=== PATIENT | male | born 1985 | race Caucasian/White ===

== ENCOUNTER 2018-04-29 09:31 | Inpatient (IN) | payer MEDICARE, OTHER ==
[2018-04-29 09:31] VITALS: BMI 39.1
[2018-04-29 09:51] VITALS: O2SAT 99
--- NOTE | 2018-04-29 10:27 | ED PDOC ---
Arrival/HPI - General Chief Complaint: Psychiatric Evaluation Time Seen by Provider: 04/29/18 10:22 Historian: Patient - History of Present Illness Narrative History of Present Illness (Text): 04/29/18 10:22 33 year old male, whose past medical history includes anxiety, depression, schizophrenia, bipolar disorder, history of diabetes but poorly controlled and has been seeing a specialist including onion tier and swimmer, presents to the emergency department complaining of feeling unhappy and depressed. Patient states he has been feeling very unhappy and depressed because he has chronic vision problems due to the diabetes which has been going on for the past 1 year, follow up by the opthalmologist and told him that he needs to have better glucose control. Patient is thinking about committing suicide by jumping in front of a car in the street. Patient denies any chest pain, palpitations, abdominal pain, nausea, vomiting, diarrhea, homicidal ideation, worsening of the vision, auditory/visual hallucinations, or any other complaints. Symptom Onset: Gradual Symptom Course: Unchanged Activities at Onset: Light Context: Home Past Medical History - Provider Review Nursing Documentation Reviewed: Yes - Infectious Disease Hx of Infectious Diseases: None - Cardiac Hx Cardiac Disorders: No - Pulmonary Hx Respiratory Disorders: No - Endocrine/Metabolic Hx Diabetes Mellitus Type 2: Yes - Hematological/Oncological Hx Blood Disorders: No - Integumentary Hx Dermatological Disorder: No - Musculoskeletal/Rheumatological Hx Falls: No - Psychiatric Hx Bipolar Disorder: Yes Hx Schizophrenia: Yes Hx Substance Use: No - Surgical History Hx Musculoskeletal Surgery: Yes (left knee) - Anesthesia Hx Anesthesia: No Hx Anesthesia Reactions: No Hx Malignant Hyperthermia: No - Suicidal Assessment Feels Threatened In Home Enviroment: No Family/Social History - Physician Review Nursing Documentation Reviewed: Yes Family/Social History: No Known Family HX Smoking Status: Never Smoked Hx Alcohol Use: No Hx Substance Use: No Hx Substance Use Treatment: No Allergies/Home Meds Allergies/Adverse Reactions: Allergies No Known Allergies Allergy (Verified 10/23/15 02:31) Home Medications: Home Meds Medication Instructions Recorded Confirmed Divalproex [Depakote ER] 500 mg PO BID 02/03/15 04/29/18 Omeprazole 40 mg PO DAILY 10/23/15 04/29/18 buPROPion XL [Wellbutrin XL] 300 mg PO BID 10/23/15 04/29/18 Fenofibrate [Tricor] 0 mg PO DAILY 04/29/18 04/29/18 MetFORMIN [glucOPHAGE] 1,000 mg PO BID 04/29/18 04/29/18 Rosuvastatin Calcium [Crestor] 10 mg PO DAILY 04/29/18 04/29/18 Review of Systems - Physician Review All systems were reviewed & negative as marked: Yes - Review of Systems Constitutional: absent: Fatigue, Fevers Eyes: absent: Photophobia, Eye Pain ENT: absent: Hearing Changes Respiratory: absent: SOB, Cough Cardiovascular: absent: Chest Pain Gastrointestinal: absent: Abdominal Pain, Diarrhea, Nausea, Vomiting Musculoskeletal: absent: Arthralgias, Back Pain Skin: absent: Rash, Pruritis Neurological: absent: Headache, Dizziness Hemo/Lymphatic: absent: Adenopathy, Easy Bleeding Psychiatric: Anxiety, Depression, Suicidal Ideation Physical Exam Vital Signs Reviewed: Yes Vital Signs Temp Pulse Resp BP Pulse Ox 04/29/18 13:35 98.6 F 88 18 129/85 99 04/29/18 09:50 98.7 F 78 16 137/84 99 Temperature: Afebrile Blood Pressure: Normal Pulse: Regular Respiratory Rate: Normal Appearance: Positive for: Well-Appearing, Non-Toxic, Comfortable Pain Distress: None Mental Status: Positive for: Alert and Oriented X 3 - Systems Exam Head: Present: Atraumatic, Normocephalic Pupils: Present: PERRL, Other (bilateral vision 20/70 with corrections. Left eye vision with correction 20/70. Right eye vision with correction 20/70.) Extroacular Muscles: Present: EOMI Conjunctiva: Present: Normal Ears: Present: NORMAL TM, Normal Canal. No: Erythema Mouth: Present: Moist Mucous Membranes Pharnyx: No: ERYTHEMA, EXUDATE, TONSILS ENLARGED Nose (External): Present: Atraumatic. No: Abrasion, Contusion, Laceration Nose (Internal): Present: Normal Inspection, No Active Bleeding. No: Rhinorrhea , Septal Hematoma, Epistaxis Neck: Present: Normal Range of Motion, Trachea Midline. No: MIDLINE TENDERNESS , Paraspinal Tenderness, Lymphadenopathy Respiratory/Chest: Present: Clear to Auscultation, Good Air Exchange. No: Respiratory Distress, Accessory Muscle Use Cardiovascular: Present: Regular Rate and Rhythm, Normal S1, S2. No: Murmurs Abdomen: No: Tenderness, Distention, Peritoneal Signs Back: Present: Normal Inspection Upper Extremity: Present: Normal Inspection. No: Cyanosis, Edema Lower Extremity: Present: Normal Inspection. No: Edema Neurological: Present: GCS=15, CN II-XII Intact, Speech Normal, Motor Func Grossly Intact, Gait Normal, Memory Normal Skin: Present: Warm, Dry, Normal Color. No: Rashes Psychiatric: Present: Alert, Oriented x 3, Normal Insight, Normal Concentration Medical Decision Making ED Course and Treatment: 04/29/18 10:41 -Labs/ua/uds/alcohol -ekg -cxr -PES notified and would come to evaluate the patient -One on One -Observe and reassess 04/29/18 11:10 -Chest xray: No active disease. -Labs show no acute findings -UA show no UTI -Acetaminophen/salicylate/alcohol levels are within normal limit -UDS show no acute findings. -Pt. is medically clear and stable at this time for the psychiatric evaluation. 04/29/18 12:08 -Pt. evaluated by the SUSANA Woodson, spoke to the psychiatrist DR. Alanis mohan and request to admit this patient to psy floor. Dr. Flores will put in the admission order. - Lab Interpretations Lab Results: 04/29/18 09:40 04/29/18 09:40 Lab Results 04/29/18 09:40: Alcohol, Quantitative < 10 04/29/18 09:40: WBC 8.8 D, RBC 4.85, Hgb 14.1, Hct 40.3 L, MCV 83.1, MCH 29.1, MCHC 35.0, RDW 12.4, Plt Count 275, MPV 9.4, Gran % 69.2 H, Lymph % (Auto) 23.3 , Hall % (Auto) 5.9, Eos % (Auto) 1.5, Baso % (Auto) 0.1, Gran # 6.12, Lymph # ( Auto) 2.1, Hall # (Auto) 0.5, Eos # (Auto) 0.1, Baso # (Auto) 0.01 04/29/18 09:40: Salicylates < 1 L, Acetaminophen < 10.0 L 04/29/18 09:40: Urine Opiates Screen Negative, Urine Methadone Screen Negative, Ur Barbiturates Screen Negative, Ur Phencyclidine Scrn Negative, Ur Amphetamines Screen Negative, U Benzodiazepines Scrn Negative, U Oth Cocaine Metabols Negative, U Cannabinoids Screen Negative 04/29/18 09:40: Sodium 140, Potassium 3.9, Chloride 101, Carbon Dioxide 24, Anion Gap 18, BUN 14, Creatinine 0.7 L, Est GFR ( Amer) > 60, Est GFR ( Non-Af Amer) > 60, Random Glucose 85, Calcium 10.1, Magnesium 2.0, Total Bilirubin 0.7, AST 42, ALT 38, Alkaline Phosphatase 37 L, Total Protein 8.7 H, Albumin 4.9 H, Globulin 3.8, Albumin/Globulin Ratio 1.3 04/29/18 09:40: Urine Color Yellow, Urine Appearance Clear, Urine pH 6.5, Ur Specific [place] 1.025, Urine Protein 100 H, Urine Glucose (UA) Negative, Urine Ketones Negative, Urine Blood Negative, Urine Nitrate Negative, Urine Bilirubin Negative, Urine Urobilinogen 0.2, Ur Leukocyte Esterase Negative, Urine RBC 0 - 2, Urine WBC 0 - 2, Ur Epithelial Cells 0 - 2, Urine Bacteria Mod, Urine Other Usperm I have reviewed the lab results: Yes - RAD Interpretation Radiology Orders: 04/29/18 10:27 CHEST PORTABLE [RAD] Stat HISTORY: medical clearance COMPARISON: 10/22/2015 FINDINGS: LUNGS: No active pulmonary disease. PLEURA: No significant pleural effusion identified, no pneumothorax apparent. CARDIOVASCULAR: Normal. OSSEOUS STRUCTURES: No significant abnormalities. VISUALIZED UPPER ABDOMEN: Normal. OTHER FINDINGS: None. IMPRESSION: No active disease. Bedspread Cutter Hand: Radiologist - EKG Interpretation EKG Interpretation (Text): 04/29/18 18:54 NSR @ 76 BPM, no ST elevation or depression, no T wave inversion. Interpreted by ED Physician: Yes Type: 12 lead EKG - Medication Orders Current Medication Orders: Atorvastatin Calcium (Lipitor) 20 mg PO DIN LYNDSEY Bupropion HCl (Wellbutrin Xl) 300 mg PO DAILY LYNDSEY Chlorpromazine (Thorazine) 200 mg PO HS LYNDSEY PRN Reason: Protocol Divalproex Sodium (Depakote Er(Once Daily)) 1,000 mg PO HS LYNDSEY PRN Reason: Protocol Fenofibrate (Tricor) 145 mg PO DAILY LYNDSEY Glipizide (Glucotrol) 10 mg PO 0730,1630 LYNDSEY Hydroxyzine HCl (Atarax) 100 mg PO HS PRN PRN Reason: Anxiety Insulin Human Regular (Humulin R Med) 0 units SC ACHS LYNDSEY PRN Reason: Protocol Last Admin: 04/29/18 17:38 Dose: Not Given Non-Admin Reason: Blood Sugar Parameter MAR Blood Glucose Document 04/29/18 17:38 [facility] (Rec: 04/29/18 17:38 [facility] [id number]) Blood Glucose Finger Stick Blood Glucose (70-120) 84 Lorazepam (Ativan) 2 mg PO Q6 PRN; Protocol PRN Reason: Agitation Lorazepam (Ativan) 2 mg IM Q6H PRN; Protocol PRN Reason: Agitation Metformin HCl (Glucophage) 1,000 mg PO BID LYNDSEY Ziprasidone (Geodon Cap) 20 mg PO Q6H PRN; Protocol PRN Reason: Agitation Ziprasidone (Geodon Inj) 20 mg IM Q6 PRN; Protocol PRN Reason: Agitation Discontinued Medications Hydroxyzine HCl (Atarax) 100 mg PO HS PRN PRN Reason: Anxiety - PA / CARDIAC CATH TECHNOLOGIST / Resident Statement MD/DO has reviewed & agrees with the documentation as recorded. - Scribe Statement The provider has reviewed the documentation as recorded by the Omi Finley Provider Scribe Attestation: All medical record entries made by the Omi were at my direction and personally dictated by me. I have reviewed the chart and agree that the record accurately reflects my personal performance of the history, physical exam, medical decision making, and the department course for this patient. I have also personally directed, reviewed, and agree with the discharge instructions and disposition. Disposition/Present on Arrival - Present on Arrival Any Indicators Present on Arrival: No History of DVT/PE: No History of Uncontrolled Diabetes: No Urinary Catheter: No History of Decub. Ulcer: No History Surgical Site Infection Following: None - Disposition Have Diagnosis and Disposition been Completed?: Yes Diagnosis: Depression, Bipolar disorder, Psychosis Disposition: HOSPITALIZED Disposition Time: 12:09 Patient Plan: Admission Patient Problems: Current Active Problems Problem Status Onset Depression Acute Bipolar disorder Acute Psychosis Acute Condition: GOOD
[2018-04-29 10:44] LABS: BASO # 0.01 K/mm3 (0.0-2.0); BASO % 0.1 % (0.0-3.0); EOS # 0.1 (0.0-0.7); EOS % 1.5 % (1.5-5.0); GRAN # 6.12 (1.4-6.5); GRAN % 69.2 % (50.0-68.0); HEMOGLOBIN 14.1 g/dL (14.0-18.0); LYMPH # 2.1 (1.2-3.4); LYMPH % 23.3 % (22.0-35.0); MEAN CELL VOLUME 83.1 fl (80.0-105.0); MEAN CORPUSCULAR HEMOGLOBIN 29.1 pg (25.0-35.0); MEAN PLATELET VOLUME 9.4 fl (7.0-11.0); MONO # 0.5 (0.1-0.6); MONO % 5.9 % (1.0-6.0); RBC 4.85 10^6/uL (3.5-6.1); RED CELL DISTRIBUTION WIDTH 12.4 % (11.5-14.5); WHITE BLOOD COUNT 8.8 10^3/ul (4.5-11.0)
--- NOTE | 2018-04-29 10:47 | RAD ---
Date of service: 04/29/2018 HISTORY: medical clearance COMPARISON: 10/22/2015 FINDINGS: LUNGS: No active pulmonary disease. PLEURA: No significant pleural effusion identified, no pneumothorax apparent. CARDIOVASCULAR: Normal. OSSEOUS STRUCTURES: No significant abnormalities. VISUALIZED UPPER ABDOMEN: Normal. OTHER FINDINGS: None. IMPRESSION: No active disease.
[2018-04-29 10:58] LABS: PH,URINE 6.5 (4.7-8.0); URINE BILIRUBIN NEGATIVE (NEGATIVE); URINE BLOOD NEGATIVE (NEGATIVE); URINE GLUCOSE (UA) NEGATIVE (NEGATIVE); URINE LEUKOCYTE ESTERASE NEGATIVE Leu/uL (NEGATIVE); URINE PROTEIN 100 mg/dL (<30 mg/dL); URINE UROBILINOGEN 0.2 E.U./dL (<1 E.U./dL)
[2018-04-29 10:59] LABS: ALB/GLOB RATIO 1.3 (1.1-1.8); ALBUMIN 4.9 g/dL (3.0-4.8); ALT/SGPT 38 U/L (7-56); AST/SGOT 42 U/L (17-59); BLOOD UREA NITROGEN 14 mg/dL (7-21); CALCIUM 10.1 mg/dL (8.4-10.5); GFR NON-AFRICAN AMERICAN > 60
[2018-04-29 11:00] LABS: ACETAMINOPHEN < 10.0 ug/ml (10.0-20.0); SALICYLATE < 1 mg/dL (2.0-20.0); URINE COLOR YELLOW (YELLOW)
[2018-04-29 11:01] LABS: URINE APPEARANCE CLEAR (CLEAR)
[2018-04-29 11:11] LABS: BARBITURATES, UR NEGATIVE (NEGATIVE); BENZODIAZEPINES, UR NEGATIVE (NEGATIVE); OPIATES, UR NEGATIVE (NEGATIVE); PHENCYCLIDINE, UR NEGATIVE (NEGATIVE)
[2018-04-29 11:22] LABS: URINE BACTERIA MOD (NEG); URINE EPITHELIAL CELLS 0 - 2 /hpf (0-5); URINE RBC 0 - 2 /hpf (0-2); URINE WBC 0 - 2 /hpf (0-6)
--- NOTE | 2018-04-29 15:54 | CARD ---
APPROVED REPORT Date of service: 04/29/2018 EKG Measurement Heart [id number] <Conclusion> Poor data quality, interpretation may be adversely affected Normal sinus rhythm Normal ECG
[2018-04-29] MEDS: Insulin Reg-MEDIUM-Coverage SC SCH ×2 (17:38→21:37)
--- NOTE | 2018-04-29 18:13 | PCM.BM ---
<NoraMitchell oseguera - Last Filed: 04/29/18 18:10> Treatment Plan Problems - Problems identified on initial assessmt HOPELESSNESS/HELPLESSNESS Date Initiated: 04/29/18 Time Initiated: 18:11 Assessment reference: HP, NA Status: Active INEFFECTIVE COPING Date Initiated: 04/29/18 Time Initiated: 18:11 Assessment reference: HP, NA Status: Active SOCIAL ISOLATION Date Initiated: 04/29/18 Time Initiated: 18:12 Assessment reference: HP, NA Status: Active Treatment assets and liabiliti Patient Assests: cooperative, self-reliant, physically healthy, cognitively intact Patient Liabilities: live alone, poor support system, other - Milieu Protocol Maintain good personal hygiene: daily Encourage regular showers, daily Remind patient to perform daily oral care, daily Assist patient to perform ADL's Maintain personal safety: daily Educate patient to report safety concerns to staff, daily Monitor environment for contraband/sharps Medication safety: Monitor for expected outcome, potential side effects: daily, Assess barriers to learning: daily, Assess readiness for medication education: daily Discharge/Continuing Care - Education Needs Education Needs: Patient Medication, Patient Diagnosis/Disease Process, Patient Coping Skills, Patient Anger Management skills, Patient Placement options, Patient Community resources, Patient Health Practices/Safety, Patient Personal Hygiene/Grooming, Patient Aftercare Safety Plan - Discharge Discharge Criteria: Tolerates medication w/o severe side effects, Free of Suicidal thoughts, Free of Homicidal thoughts, Free of paranoid thoughts, Free of agitation, Normal sleep pattern, Ability to care for self Discharge to:: Home <Neelam Vu - Last Filed: 04/30/18 14:05> Family Contact Family involvement: Family/SO is involved Family contact: Patient agrees to contact Family contact name: Liborio Sandoval, , Family contacted how many times per week?: 2 - Outside Agency [facility] Care involvment: Information-sharing Agency contact name: [facility] Agency contact number: [phone] <Alanis Pascual - Last Filed: 04/30/18 16:06> - Diagnosis (1) MDD (major depressive disorder), single episode, severe with psychosis Status: Acute Interventions: 04/30/18 16:04 Psychoeducation Psychopharmacology/adjustment of medications as needed/ monitoring possible side effects Evaluate pt on daily basis Compliance with medications and follow up appointments Suicide and homicide risk assessment and prevention Relapse prevention Reduction of symptoms Improve functional status Family involvement As outpatient: cognitive behavioral therapy antipsychotic meds
[2018-04-29] MEDS: Divalproex 500 mg ER (ONCE DAILY formulation) PO SCH (21:26)
[2018-04-30 07:51] LABS: GLUCOSE,FASTING 102 mg/dL (65-110); HDL CHOLESTEROL 40 mg/dL (29-60)
[2018-04-30] MEDS ORDERED: buPROPion 300 mg/24 Hours XL Tab PO SCH (08:00)
[2018-04-30 08:02] LABS: LDL CHOLESTEROL 38 mg/dL (0-129)
[2018-04-30 08:07] LABS: FREE T4 1.46 ng/dL (0.78-2.19)
[2018-04-30] MEDS: Insulin Reg-MEDIUM-Coverage SC SCH ×4 (09:08→23:38)
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
--- NOTE | 2018-04-30 14:00 | CON ---
DATE: 04/30/2018ENDOCRINOLOGY CONSULT LOCATION: In room 515. HISTORY OF PRESENT ILLNESS: This is a 33-year-old male with known history of type 2 diabetes and hypertension, presenting here with suicidal ideations and supervening generalized anxiety and depression on the background of underlying schizophrenia and bipolar disorder and is now being referred for diabetic evaluation and management. PAST MEDICAL HISTORY: As mentioned above, history of type 2 diabetes, currently on metformin given as 1 g b.i.d. He was told by his mortgage or loan underwriter that his glucose levels did have been out of control, but the patient is unable to give the exact level of his A1c as noted. History of hypertension and dyslipidemia, history of diabetic retinopathy and has chronic visual problems and is seeing an substance abuse specialist very closely for outpatient followup. History of chronic schizoaffective disorder with schizophrenia and has been on psychotropic medications as noted. FAMILY HISTORY: Positive for hypertension and diabetes. SOCIAL HISTORY: The patient has supportive family. No known substance use. REVIEW OF SYSTEMS: As mentioned above, admits to generalized body weakness with episodic bouts of dizziness and lightheadedness, worse on the day of admission. No chest pains or palpitations or PNDs. His oral intake has been variable with nausea, dyspepsia and occasional vague upper abdominal pains. Also admits to occasional nocturia and lower extremity paresthesias. PHYSICAL EXAMINATION: GENERAL: This is an overweight male, in no apparent distress. VITAL SIGNS: Blood pressure of 140/80; pulse of 70 beats per minute, regular; temperature 98; respirations 20; height is 5 feet 8 inches, weight is 220 pounds. HEENT: Head normocephalic. Eyes anicteric with pink conjunctivae. Funduscopy not possible at this time. Ears, nose and throat otherwise normal. NECK: Supple. Thyroid gland normal sized. No carotid bruits or cervical adenopathy. CARDIOPULMONARY: Some adynamic precordium. S1, S2 is rapid and regular. LUNGS: Clear to auscultation. ABDOMEN: Flat, soft with positive bowel sounds. EXTREMITIES: No peripheral edema. Pulses are +2 bilaterally. LABORATORY DATA: His chemistry showed a BUN of 14, sodium 140, potassium 3.9, chloride 101, CO2 of 24, glucose 85 and creatinine 0.7. His glucose levels have been near optimal and have ranged from 92-111 and 119 mg/dL. His TSH is 2.13. ASSESSMENT: This is a 33-year-old male with known history of type 2 diabetes and hypertension, presenting here with suicidal ideations on the background of chronic schizoaffective disorder and schizophrenia and is now being referred for a diabetic evaluation and management. PLAN OF MANAGEMENT: We will continue the dual oral hypoglycemic therapy as already given with metformin at 1 g b.i.d. and Glucotrol 10 mg b.i.d. before meals as ordered. We will continue the low-dose correction scale using Humalog insulin as given and we will titrate incrementally as indicated to optimize metabolic control. We will obtain serial chemistries and supplement accordingly as needed. A hemoglobin A1c will be done to confirm his prior glycemic control and we will consider the addition of a third oral hypoglycemic therapy only if glycemic fluctuations persist. We will follow. Marleny Paul MD
--- NOTE | 2018-04-30 16:59 | PCM.PSYCH ---
Initial Psychiatric Evaluation - Initial Psychiatric Evaluation Type of Admission: Voluntary Legal Status: Capacity (patient has capacity to sign consent for treatment) Chief Complaint (in patient's own words): "3 days ago I was hearing voices, I tried to walk into the traffic, I didn't tell anyone, yesterday and felt the same way that's why called 911" Patient's Reaction to Hospitalization: patient was admitted to the psychiatric inpatient unit for evaluation and stabilization of depressive symptoms, possible suicidal ideation. History of Present Illness and Precipitating Events: shortly patient is 33 year old male with reported history of sschizoaffective versus schizophrenia, multiple previous suicidal attempts as well as multiple psychiatric admissions, patient has multiple medical issues including diabetes, patient called 911 saying that he feels suicidal and brought himself to the hospital, 3 days ago on 04/28/2018 patient was trying to kill himself by walking into the traffic, did not tell anyone, did not come to the hospital for evaluation, patient reported being compliant with the medications, main stress is related to the fact that his mother is dying of brain cancer and she is on hospice patient also has blurry vision due to diabetes, patient obviously needs further evaluation and stabilization, indications adjustment. patient attends [facility] but fail outpatient program and right now needs higher level of care. Patient was seen and examined today at the morning time at the treatment team meeting, patient presented with acceptable personal hygiene, fare ADLs, flat affect, obviously depressed, seems to be relatively good historian, but patient had difficulty to concentrate and stay focused. patient reported that 3 days ago patient tried to jump in front of the car secondary to "blurry vision, whenever I feel I am loosing my vision I feel hopeless and suicidal", pt said he wanted to jump in front of the car because voices in his head were telling him to do so, pt also reported he had intent of killing himself. pt said that after approximately 30 minutes patient decided to come back home, patient did not ask for help back then. Patient reported yesterday she again started to have blurry vision and decided to call 911 ask for help for his suicidal ideation. Patient reported that he feels depressed, hopeless, helpless, worthless, guilty , patient reported that he feels "overwhelmed with my medical issues". Patient reported that for past 2 weeks he was thinking about cutting himself or overdosing on medication or walk into the traffic. Patient reported that he they did not tried to cut himself or overdose on medication for the past 2 weeks. patient denied that he has Street off many, no symptoms were identified. Patient denied feeling anxious, denied history of abuse, denied history of panic attacks. In regards of psychotic symptoms patient reported that he hears voices, denied feeling paranoid. Patient denied using drugs, denied using alcohol, denied smoking. past psychiatric history: PT reports prior suicide attempt by walking into traffic in 2006 by walking into traffic, pt reported that he sustained severe injury on his left leg (old scar on his oneill), and severe brain trauma "I have memory loss". Pt reports he was hospitalized at [facility] on the medical unit for 1 1/2 years. Pt reports he was in [place] [facility] for 6 months in 2008. Pt reports he was dx with Bipolar and Schizophrenia. Pt reports he was also admitted to [facility] multiple times. PT reports prior hospitalization due to brain injury at [place]. PT reports 2 suicide attempts in 2006 and 3 days ago. Family h/o: pt denies any familial hx of suicide attempts. patient contracted for safety patient currently under care of nurse practitioner Ivonne at [facility]. all medications were confirmed by [facility] please see medication list filed into the chart. Reviewing med list patient was on couple of medication which "gave patient blurted patient including Wellbutrin as well as Thorazine. Patient agreed to be weaned off from the Wellbutrin as well as decreased dose of Thorazine. Pt was on Invega Sustenna last dose was given April 02, 234 mg monthly. called in to [facility] pharmacy already, it is not formulary in the unit. patient was seen by medical doctor, input appreciated. endocrinology consult would be considered. SW called for collaterals from pt's sister, as per sister pt was not losing vision, was seen by chamfering machine operator and PMD. see notes for more detailed info. 04/29/18 09:40 04/29/18 09:40 Lab Results 04/30/18 12:00: POC Glucose (mg/dL) 119 H 04/30/18 07:25: POC Glucose (mg/dL) 92 04/30/18 07:15: RPR Nonreactive 04/30/18 07:15: Free T4 1.46, TSH 3rd Generation 2.13 04/30/18 07:15: Fasting Glucose 102, Triglycerides 125, Cholesterol 109 L, LDL Cholesterol Direct 38, HDL Cholesterol 40 04/29/18 20:54: POC Glucose (mg/dL) 111 H 04/29/18 16:30: POC Glucose (mg/dL) 84 04/29/18 09:40: Alcohol, Quantitative < 10 04/29/18 09:40: WBC 8.8 D, RBC 4.85, Hgb 14.1, Hct 40.3 L, MCV 83.1, MCH 29.1, MCHC 35.0, RDW 12.4, Plt Count 275, MPV 9.4, Gran % 69.2 H, Lymph % (Auto) 23.3 , [place] % (Auto) 5.9, Eos % (Auto) 1.5, Baso % (Auto) 0.1, Gran # 6.12, Lymph # ( Auto) 2.1, [place] # (Auto) 0.5, Eos # (Auto) 0.1, Baso # (Auto) 0.01 04/29/18 09:40: Salicylates < 1 L, Acetaminophen < 10.0 L 04/29/18 09:40: Urine Opiates Screen Negative, Urine Methadone Screen Negative, Ur Barbiturates Screen Negative, Ur Phencyclidine Scrn Negative, Ur Amphetamines Screen Negative, U Benzodiazepines Scrn Negative, U Oth Cocaine Metabols Negative, U Cannabinoids Screen Negative 04/29/18 09:40: Sodium 140, Potassium 3.9, Chloride 101, Carbon Dioxide 24, Anion Gap 18, BUN 14, Creatinine 0.7 L, Est GFR ( Amer) > 60, Est GFR ( Non-Af Amer) > 60, Random Glucose 85, Calcium 10.1, Magnesium 2.0, Total Bilirubin 0.7, AST 42, ALT 38, Alkaline Phosphatase 37 L, Total Protein 8.7 H, Albumin 4.9 H, Globulin 3.8, Albumin/Globulin Ratio 1.3 04/29/18 09:40: Urine Color Yellow, Urine Appearance Clear, Urine pH 6.5, Ur Specific [place] 1.025, Urine Protein 100 H, Urine Glucose (UA) Negative, Urine Ketones Negative, Urine Blood Negative, Urine Nitrate Negative, Urine Bilirubin Negative, Urine Urobilinogen 0.2, Ur Leukocyte Esterase Negative, Urine RBC 0 - 2, Urine WBC 0 - 2, Ur Epithelial Cells 0 - 2, Urine Bacteria Mod, Urine Other Usperm Vital Signs Temp Pulse Resp BP Pulse Ox 04/30/18 07:06 97.5 F L 94 H 20 108/76 04/29/18 16:30 88 133/88 04/29/18 13:35 98.6 F 88 18 129/85 99 04/29/18 09:50 98.7 F 78 16 137/84 99 Current Medications: Active Medications Generic Name Dose Route Start Last Admin Trade Name Freq PRN Reason Stop Dose Admin Atorvastatin Calcium 20 mg 04/30/18 17:00 Lipitor PO DIN LYNDSEY Bupropion HCl 150 mg 04/30/18 16:07 Wellbutrin Xl PO DAILY LYNDSEY Chlorpromazine 100 mg 04/30/18 16:09 Thorazine PO HS LYNDSEY Protocol Divalproex Sodium 1,000 mg 04/29/18 22:00 04/29/18 21:26 Depakote Er(Once Daily) PO 1,000 mg HS LYNDSEY Administration Protocol Escitalopram Oxalate 15 mg 04/30/18 16:15 Lexapro PO DAILY LYNDSEY Fenofibrate 145 mg 04/30/18 08:00 04/30/18 09:07 Tricor PO 145 mg DAILY LYNDSEY Administration Glipizide 10 mg 04/30/18 07:30 04/30/18 09:07 Glucotrol PO 10 mg 0730,1630 LYNDSEY Administration Hydroxyzine HCl 100 mg 04/29/18 22:00 Atarax PO HS PRN Anxiety Insulin Human Regular 0 units 04/29/18 16:30 04/30/18 09:08 Humulin R Med SC Not Given ACHS LYNDSEY Protocol Lorazepam 2 mg 04/29/18 17:33 Ativan PO Q6 PRN Agitation Protocol Lorazepam 2 mg 04/29/18 17:36 Ativan IM Q6H PRN Agitation Protocol Metformin HCl 1,000 mg 04/30/18 08:00 04/30/18 09:07 Glucophage PO 1,000 mg BID LYNDSEY Administration Ziprasidone 20 mg 04/29/18 17:34 Geodon Cap PO Q6H PRN Agitation Protocol Ziprasidone 20 mg 04/29/18 17:36 Geodon Inj IM Q6 PRN Agitation Protocol Past Psychiatric History - Past Psychiatric History Previous Treatment History: Inpatient Prior Professional Help: see HPI Prior Psychiatric Treatment: see HPI At what hospital: see HPI Duration: see HPI Nature of Treatment: see HPI Explanation of prior treatment: see HPI History of Abuse: see HPI History of ETOH/Drug Use: see HPI History of Family Illness: see HPI Pertinent Medical Hx (Current Medical&Sleep Prob, Allergies): Allergies Allergy/AdvReac Type Severity Reaction Status Date / Time No Known Allergies Allergy Verified 10/23/15 02:31 Divalproex [Depakote ER] 500 mg PO BID 02/03/15 Omeprazole 40 mg PO DAILY 10/23/15 buPROPion XL [Wellbutrin XL] 300 mg PO BID 10/23/15 Fenofibrate [Tricor] 0 mg PO DAILY 04/29/18 MetFORMIN [glucOPHAGE] 1,000 mg PO BID 04/29/18 Rosuvastatin Calcium [Crestor] 10 mg PO DAILY 04/29/18 Review of Systems - Review of Systems Systems not reviewed;Unavailable: Acuity of Condition - EENT Eyes: As Per HPI Ears: As Per HPI Nose/Mouth/Throat: As Per HPI - Cardiovascular Cardiovascular: As Per HPI - Respiratory Respiratory: As Per HPI - Gastrointestinal Gastrointestinal: As Per HPI - Genitourinary Genitourinary: As Per HPI - Reproductive: Male Reproductive:Male: As Per HPI - Musculoskeletal Musculoskeletal: As Par HPI - Integumentary Integumentary: As Per HPI - Neurological Neurological: As Per HPI - Psychiatric Psychiatric: As Per HPI - Endocrine Endocrine: As Per HPI - Hematologic/Lymphatic Hematologic: As Per HPI Mental Status Examination - Personal Presentation Personal Presentation: Looks stated age - Affect Affect: Flat - Motor Activity Motor Activity: Psychomotor Retardation - Reliability in Providing Information Reliability in Providing Information: Fair - Speech Speech: Organized - Mood Mood: Depressed - Formal Thought Process Formal Thought Process: Hallucinations - Hallucinations/Delusions Hallucinations: Auditory - Obsessions/Compulsions Obsessions: None Compulsions: None - Cognitive Functions Orientation: Person, Place Sensorium: Alert Abstract Thinking: [place] Estimate of Intelligence: Average Judgement: Intact, as evidence by: Insight regarding need for hospitalization - Risk Risk: Suicidal, Self-mutilation, Diminished functioning - Strength & Assets Inventory Strength & Assets Inventory: Family support, Cooperative - Limitations Limitations: Other (mental illness, a lot of stressors, multiple medical issues) DSM 5 DX - DSM 5 DSM 5 Diagnosis: schizoaffective disorder as per history - Recommended/Plan of Treatment Treatment Recommendations and Plan of Treatment: Milieu/structure/supportive therapy Medical consult appreciated, see medical team note for more detailed info endocrinology consultation will be considered Medications were confirmed by patient pharmacy Wellbutrin was decreased to 150 mg daily with a plan to wean it off, patient was on 300 mg daily ( patient complain of blurry vision) Thorazine will be decreased from 200 mg to 100 mg at the nighttime with a plan to wean it off, patient complain of blurry vision Lexapro will be increased to 15 mg a day for depression with a plan to increase that further Invega Sustenna will be continued to 34 mg monthly, this public relations writer called in to [facility] pharmacy, patient is due for injection on Thursday, May 03. We'll continue Depakote 1000 mg at the nighttime We'll check Depakote level 05/01/2018 Vistaril was decreased from 100 mg at the nighttime to 50 mgas needed for anxiety SW consultation for discharge plan and social issues Family involvement, ollateral information appreciated from patient's sister, please see manager social media notes for more detailed information Follow up on labs Will monitor closely Pt was educated about risk/benefits and alternatives of medications, coping strategies (safety plan, suicide prevention), relapse prevention, importance of follow up with psychiatrist and therapist, stay away from drugs/alcohol/smoking Projected ELOS: 10 days Prognosis: fair Discharge Plan and Discharge Criteria: Pt will be not depressed or manic, will be more hopeful, will be not psychotic or anxious, will be not having thoughts of harming self or others, will be tolerating medications well, will not have major side effects, will be able to function, will not pose threat to self or others. - Smoking Cessation Smoking Cessation Initiated: No Reason for not providing: patient denied smoking
[2018-04-30] MEDS: Divalproex 500 mg ER (ONCE DAILY formulation) PO SCH (21:31)
[2018-05-01 09:06] LABS: ALB/GLOB RATIO 1.4 (1.1-1.8); ALBUMIN 4.3 g/dL (3.0-4.8); ALT/SGPT 27 U/L (7-56); AST/SGOT 35 U/L (17-59); BLOOD UREA NITROGEN 13 mg/dL (7-21); CALCIUM 9.5 mg/dL (8.4-10.5); GFR NON-AFRICAN AMERICAN > 60
[2018-05-01] MEDS: Insulin Reg-MEDIUM-Coverage SC SCH ×3 (09:23→16:12)
[2018-05-01] MEDS: buPROPion 150 mg/24 Hours XL Tab PO SCH (09:29)
--- NOTE | 2018-05-01 09:43 | PCM.PYCHPN ---
Psychiatric Progress Note - Psychiatric Progress Note Patient seen today, length of contact: 30 min Problems Identified/Issues Discussed: I reviewed assessment and recent notes. Patient is alert and oriented x3. He presents as calm and superficially cooperative. Patient reports that he is feeling "okay" and denies any major new concerns. He is still depressed however denies wishes or SI. He also denies any perceptual disturbance (though reported having hallucinations earlier in the admission). Patient denies any new discomfort or pain. He is tolerating his medications and reports sleeping well. Patient has been quiet and generally keeps to himself. There were no behavioral issues overnight. Diagnostic Results: Schizoaffective disorder by history Medication Change: Yes Medical Record Reviewed: Yes Mental Status Examination - Cognitive Function Orientation: Person, Place Attention: WNL Concentration: WNL Association: Loose Fund of Knowledge: Poor - Mood Mood: Depressed - Affect Affect: Constricted, Flat - Speech Speech: Appropriate - Formal Thought Process Formal Thought Process: Hallucinations (denied currently) - Suicidal Ideation Suicidal Ideation: No - Homicidal Ideation Homicidal Ideation: No Goal/Treatment Plan - Goal/Treatment Plan Progress Toward Problem(s) and Goals/Treatment Plan: * group, milieu and supportive tx --Thorazine decreased to 50 mg po HS on 05/01/18. --Plan to titrate Lexapro further --Plan to taper Wellbutrin further. --Continue Depakote 1000 mg at the nighttime 05/01/18 07:30 Valproic Acid 59 Vitals reviewed and noted below: 04/30/18 04/30/18 07:06 16:00 Temperature 97.5 F L Pulse Rate 94 H 123 H Respiratory 20 Rate Blood Pressure 108/76 103/66 * New weekend lab results noted below: Laboratory Results - last 24 hr 04/30/18 04/30/18 04/30/18 07:15 12:00 16:08 Sodium Potassium Chloride Carbon Dioxide Anion Gap BUN Creatinine Est GFR ( Amer) Est GFR (Non-Af Amer) POC Glucose (mg/dL) 119 H 83 Random Glucose Calcium Total Bilirubin AST ALT Alkaline Phosphatase Total Protein Albumin Globulin Albumin/Globulin Ratio Valproic Acid RPR Nonreactive 04/30/18 05/01/18 05/01/18 21:43 07:21 07:30 Sodium Potassium Chloride Carbon Dioxide Anion Gap BUN Creatinine Est GFR ( Amer) Est GFR (Non-Af Amer) POC Glucose (mg/dL) 91 89 Random Glucose Calcium Total Bilirubin AST ALT Alkaline Phosphatase Total Protein Albumin Globulin Albumin/Globulin Ratio Valproic Acid 59 RPR 05/01/18 08:30 Sodium 140 Potassium 4.1 Chloride 107 Carbon Dioxide 21 Anion Gap 16 BUN 13 Creatinine 0.6 L Est GFR ( Amer) > 60 Est GFR (Non-Af Amer) > 60 POC Glucose (mg/dL) Random Glucose 85 Calcium 9.5 Total Bilirubin 0.5 AST 35 ALT 27 Alkaline Phosphatase 36 L Total Protein 7.5 Albumin 4.3 Globulin 3.2 Albumin/Globulin Ratio 1.4 Valproic Acid RPR *
--- NOTE | 2018-05-01 14:09 | PN ---
DATE: 05/01/2018 ENDOCRINOLOGY FOLLOWUP NOTE LOCATION: In room 515. SUBJECTIVE: This is a 33-year-old male admitted with major depressive disorder and suicidal ideation and is now being followed closely for metabolic management. His glycemic levels are fluctuating, but much improved at this time and actually on the low side of normal as noted overnight with glucose levels ranging from 89 to 91 mg/dL. His latest chemistries done today showed a BUN of 13. Sodium 140, potassium 4.1, chloride 107, CO2 of 21. Glucose 85. Creatinine 0.6. ASSESSMENT: This is a 33-year-old male with major depressive disorder and supervening suicidal ideations with underlying schizophrenia and schizoaffective disorder and is now being followed closely for metabolic management. His glycemic levels are much improved at this time, although we are waiting the A1c values as noted. PLAN OF MANAGEMENT: As discussed with the patient and staff, we will continue his glipizide given as 10 mg b.i.d. before meals as ordered. However, we will lower the metformin to 850 mg b.i.d. after meals to start today. We will continue also the low-dose correction scale using regular insulin as given. We will await the reports of the A1c which will confirm the degree of metabolic control that he has even prior to this admission. We will also consider the addition of Januvia if hyperglycemic levels supervene. We will follow. Marleny Paul MD
--- NOTE | 2018-05-01 17:16 | PN ---
DATE: 05/01/2018 SUBJECTIVE: The patient is 33 years old, seen and examined. He has very flat affect, feels depressed, complained of visual disturbance that is going on, off and on for sometime. PHYSICAL EXAMINATION VITAL SIGNS: He is afebrile, pulse 102, respirations 17, and blood pressure 112/74. LUNGS: Bilateral fair airflow. No rhonchi or crackle. HEART: S1 and S2 audible. ABDOMEN: Soft, obese, and nontender. No rebound. No guarding. NEUROLOGIC: He is awake, alert, oriented, communicative, and ambulatory. Less depressed. LABORATORY DATA: Valproic acid is 59. ASSESSMENT: 1. History of depression. 2. Paranoid schizophrenia. 3. Bipolar disorder. 4. [id number] diabetes. 5. Visual impairment. PLAN: We will monitor his blood sugar and make appropriate adjustment. Psych medications will be adjusted by Psychiatry. Zack Rueda MD
[2018-05-01] MEDS: Divalproex 500 mg ER (ONCE DAILY formulation) PO SCH (21:32)
[2018-05-02] MEDS: Insulin Reg-MEDIUM-Coverage SC SCH ×2 (01:15→08:49)
[2018-05-02 07:30] VITALS: RESP 20
[2018-05-02] MEDS: buPROPion 150 mg/24 Hours XL Tab PO SCH (08:48)
--- NOTE | 2018-05-02 10:11 | PCM.PYCHPN ---
Psychiatric Progress Note - Psychiatric Progress Note Patient seen today, length of contact: 30 min Problems Identified/Issues Discussed: I reviewed recent notes and interviewed patient at bedside again. Patient remains alert and oriented x3. He presents as calm and superficially cooperative. Affect is constricted. Patient reports that he is feeling "okay, better" and denies any major new concerns. He is still depressed however denies wishes or SI. He continues to deny any perceptual disturbance (though reported having hallucinations earlier in the admission). He hasn't been observed to be responding to internal stimuli on the unit. Patient denies any new discomfort or pain. He is tolerating his medications and reports sleeping well. Appetite is good. Patient has been quiet and generally keeps to himself. Participates in groups and can communicate needs. There were no behavioral issues over the weekend. Diagnostic Results: Schizoaffective disorder by history Medication Change: Yes (Lexapro increased to 20 mg po daily) Medical Record Reviewed: Yes Mental Status Examination - Cognitive Function Orientation: Person, Place Attention: WNL Concentration: WNL Association: Loose Fund of Knowledge: Poor - Mood Mood: Depressed - Affect Affect: Constricted, Flat - Speech Speech: Appropriate - Formal Thought Process Formal Thought Process: Hallucinations (denied currently) - Suicidal Ideation Suicidal Ideation: No - Homicidal Ideation Homicidal Ideation: No Goal/Treatment Plan - Goal/Treatment Plan Progress Toward Problem(s) and Goals/Treatment Plan: * group, milieu and supportive tx * Appreciate f/u by Dr. Paul on 05/01/18~continues to adjust diabetic medications [ please see consult for more details] * Appreciate f/u by Dr. Rueda on 05/01/18 --Thorazine decreased to 50 mg po HS on 05/01/18. -- Lexapro increased to 20 mg po daily on 05/02/18 --Plan to taper Wellbutrin further. --Continue Depakote 1000 mg at the nighttime 05/01/18 07:30 Valproic Acid 59 Vitals reviewed and noted below: Selected Entries 05/01/18 05/01/18 08:00 16:34 Temperature 97.5 F L Pulse Rate 102 H 92 H Respiratory 17 Rate Blood Pressure 112/74 122/78 * New weekend lab results noted below: 05/01/18 05/01/18 05/01/18 07:30 08:30 11:40 Sodium 140 Chloride 107 Carbon Dioxide 21 BUN 13 Creatinine 0.6 L Est GFR (Non-Af Amer) > 60 POC Glucose (mg/dL) 151 H Random Glucose 85 Calcium 9.5 Total Bilirubin 0.5 AST 35 ALT 27 Alkaline Phosphatase 36 L Total Protein 7.5 Albumin 4.3 Globulin 3.2 Albumin/Globulin Ratio 1.4 Cortisol AM Sample 12.1 Laboratory Results - last 24 hr 04/30/18 04/30/18 04/30/18 07:15 12:00 16:08 Sodium Potassium Chloride Carbon Dioxide Anion Gap BUN Creatinine Est GFR ( Amer) Est GFR (Non-Af Amer) POC Glucose (mg/dL) 119 H 83 Random Glucose Calcium Total Bilirubin AST ALT Alkaline Phosphatase Total Protein Albumin Globulin Albumin/Globulin Ratio Valproic Acid RPR Nonreactive 04/30/18 05/01/18 05/01/18 21:43 07:21 07:30 Sodium Potassium Chloride Carbon Dioxide Anion Gap BUN Creatinine Est GFR ( Amer) Est GFR (Non-Af Amer) POC Glucose (mg/dL) 91 89 Random Glucose Calcium Total Bilirubin AST ALT Alkaline Phosphatase Total Protein Albumin Globulin Albumin/Globulin Ratio Valproic Acid 59 RPR 05/01/18 08:30 Sodium 140 Potassium 4.1 Chloride 107 Carbon Dioxide 21 Anion Gap 16 BUN 13 Creatinine 0.6 L Est GFR ( Amer) > 60 Est GFR (Non-Af Amer) > 60 POC Glucose (mg/dL) Random Glucose 85 Calcium 9.5 Total Bilirubin 0.5 AST 35 ALT 27 Alkaline Phosphatase 36 L Total Protein 7.5 Albumin 4.3 Globulin 3.2 Albumin/Globulin Ratio 1.4 Valproic Acid RPR *
--- NOTE | 2018-05-02 10:39 | PN ---
DATE: 05/02/2018 ENDO FOLLOWUP NOTE LOCATION: In room 515, Psychiatry. SUBJECTIVE: This is a 33-year-old male with recent admission for major depressive disorder with supervening suicidal ideations and is now undergoing closer psychiatric evaluation and management and is being followed closely also for metabolic management. Over the past day or so, he has had low normal glycemic profile also related to the variability of his oral intake as noted. His glucose levels overnight have ranged from 87 to 107 and 90 mg/dL today as noted. His latest chemistries showed a BUN of 13, sodium 140, potassium 4.1, chloride 107, CO2 of 21, glucose 85 and creatinine 0.6. So at this time, we will continue the modified dual oral hypoglycemic drug regimen with a combination of metformin given as a lower dose of 850 mg b.i.d. as ordered. We will continue the glipizide modified to a lower dose of 5 mg b.i.d. before meals as given. His hemoglobin A1c is still pending at this time and this will determine his degree of metabolic control even prior to this admission. We will obtain serial chemistries and supplement accordingly as needed. We will follow. Marleny Paul MD
[2018-05-02] MEDS: Insulin Lispro (humaLOG) LOW Coverage SC SCH ×3 (12:35→21:38)
[2018-05-02] MEDS: Divalproex 500 mg ER (ONCE DAILY formulation) PO SCH (21:43)
[2018-05-03] MEDS: buPROPion 150 mg/24 Hours XL Tab PO SCH (08:35)
[2018-05-03] MEDS: Insulin Lispro (humaLOG) LOW Coverage SC SCH ×3 (11:42→21:49)
[2018-05-03] MEDS ORDERED: Home Med 1 UNIT IM ONE ×2 (12:03→12:15)
--- NOTE | 2018-05-03 13:03 | PN ---
DATE: 05/03/2018 SUBJECTIVE: The patient is 33 years old. Seen and examined, lying in bed. Seems to be comfortable. Still complained of blurry vision. However, blood sugar has been running good. PHYSICAL EXAMINATION: GENERAL: He is awake, alert, oriented, communicative. VITAL SIGNS: He is afebrile, pulse 85, respirations 20, blood pressure . LUNGS: Bilateral good airflow. No rhonchi or crackle. HEART: S1 and S2 audible. ABDOMEN: Soft. Nontender. No rebound. No guarding. NEUROLOGICAL: He is awake, alert, oriented, communicative, ambulatory. LABORATORY EXAM: Blood sugar was 81 this morning and running at 97 prior to lunch. Urine tox is negative. RPR is negative. ASSESSMENT: 1. History of depression. 2. History of schizophrenia with bipolar disorder. 3. Noninsulin-dependent diabetes. 4. Hyperlipidemia. 5. Visual disturbance. PLAN: The patient is currently on metformin 850 twice a day and glipizide 5 mg twice a day. We will continue that. Might cut down his metformin from 850 to 500 twice a day. Monitor his blood sugar. Zack Rueda MD
--- NOTE | 2018-05-03 15:08 | PN ---
DATE: 05/03/2018 ENDOCRINOLOGY FOLLOWUP LOCATION: Room 515, This is a 33-year-old male with major depressive disorder presenting here with suicidal admission and is now being followed closely for metabolic management. He is being followed closely also for metabolic management and his glycemic levels have remained near optimal at this time with occasional glucose fluctuations as noted. His glucose levels have ranged from 81 to 169 and 197 mg/dL. His latest A1c has been reported as 5.5%, which is actually impressive considering the fact that he was told that his glycemic levels have been fluctuating with suboptimal metabolic control by his primary physician. So at this time, we will continue the modified oral hypoglycemic therapy and actually lower the metformin to 500 mg b.i.d. after meals as ordered. We will also lower the glipizide to 5 mg b.i.d. before meals as given. We will titrate incrementally as indicated to optimize metabolic control. We will continue the low-dose correction scale using regular insulin as ordered. We will obtain serial chemistries and supplement accordingly as needed. We will follow up with you. Marleny Paul MD
--- NOTE | 2018-05-03 17:13 | PCM.PYCHPN ---
Psychiatric Progress Note - Psychiatric Progress Note Patient seen today, length of contact: 30 min Patient Chief Complaint: "I feel little better, I do not have a blurry vision, I need to go home, my mother is in hospice, doctors are giving her two weeks to live..." Problems Identified/Issues Discussed: Suicide/ homicide prevention, past psychiatric h/o, current psychiatric symptoms , medical problems, risk/benefits and alternatives of medications, medications compliance, coping strategies, substance abuse h/o, relapse prevention, importance of follow up with psychiatrist and therapist, discharge plan. Medical Problems: see HPI diabetes Diagnostic Results: 04/29/18 09:40 05/01/18 08:30 Lab Results 05/03/18 16:07: POC Glucose (mg/dL) 78 05/03/18 11:15: POC Glucose (mg/dL) 197 H 05/03/18 07:26: POC Glucose (mg/dL) 81 05/02/18 21:14: POC Glucose (mg/dL) 169 H 05/02/18 16:09: POC Glucose (mg/dL) 75 05/02/18 11:12: POC Glucose (mg/dL) 170 H 05/02/18 07:17: POC Glucose (mg/dL) 90 05/01/18 21:12: POC Glucose (mg/dL) 107 05/01/18 16:37: POC Glucose (mg/dL) 87 05/01/18 16:17: POC Glucose (mg/dL) 58 L 05/01/18 15:58: POC Glucose (mg/dL) 55 L 05/01/18 11:40: POC Glucose (mg/dL) 151 H 05/01/18 08:30: Sodium 140, Potassium 4.1, Chloride 107, Carbon Dioxide 21, Anion Gap 16, BUN 13, Creatinine 0.6 L, Est GFR ( Amer) > 60, Est GFR ( Non-Af Amer) > 60, Random Glucose 85, Calcium 9.5, Total Bilirubin 0.5, AST 35, ALT 27, Alkaline Phosphatase 36 L, Total Protein 7.5, Albumin 4.3, Globulin 3.2 , Albumin/Globulin Ratio 1.4 05/01/18 07:30: Valproic Acid 59 05/01/18 07:30: Cortisol AM Sample 12.1 05/01/18 07:30: Hemoglobin A1c 5.5 05/01/18 07:21: POC Glucose (mg/dL) 89 04/30/18 21:43: POC Glucose (mg/dL) 91 04/30/18 16:08: POC Glucose (mg/dL) 83 04/30/18 12:00: POC Glucose (mg/dL) 119 H 04/30/18 07:25: POC Glucose (mg/dL) 92 04/30/18 07:15: RPR Nonreactive 04/30/18 07:15: Free T4 1.46, TSH 3rd Generation 2.13 04/30/18 07:15: Fasting Glucose 102, Triglycerides 125, Cholesterol 109 L, LDL Cholesterol Direct 38, HDL Cholesterol 40 04/29/18 20:54: POC Glucose (mg/dL) 111 H 04/29/18 16:30: POC Glucose (mg/dL) 84 04/29/18 09:40: Alcohol, Quantitative < 10 04/29/18 09:40: WBC 8.8 D, RBC 4.85, Hgb 14.1, Hct 40.3 L, MCV 83.1, MCH 29.1, MCHC 35.0, RDW 12.4, Plt Count 275, MPV 9.4, Gran % 69.2 H, Lymph % (Auto) 23.3 , [place] % (Auto) 5.9, Eos % (Auto) 1.5, Baso % (Auto) 0.1, Gran # 6.12, Lymph # ( Auto) 2.1, [place] # (Auto) 0.5, Eos # (Auto) 0.1, Baso # (Auto) 0.01 04/29/18 09:40: Salicylates < 1 L, Acetaminophen < 10.0 L 04/29/18 09:40: Urine Opiates Screen Negative, Urine Methadone Screen Negative, Ur Barbiturates Screen Negative, Ur Phencyclidine Scrn Negative, Ur Amphetamines Screen Negative, U Benzodiazepines Scrn Negative, U Oth Cocaine Metabols Negative, U Cannabinoids Screen Negative 04/29/18 09:40: Sodium 140, Potassium 3.9, Chloride 101, Carbon Dioxide 24, Anion Gap 18, BUN 14, Creatinine 0.7 L, Est GFR ( Amer) > 60, Est GFR ( Non-Af Amer) > 60, Random Glucose 85, Calcium 10.1, Magnesium 2.0, Total Bilirubin 0.7, AST 42, ALT 38, Alkaline Phosphatase 37 L, Total Protein 8.7 H, Albumin 4.9 H, Globulin 3.8, Albumin/Globulin Ratio 1.3 04/29/18 09:40: Urine Color Yellow, Urine Appearance Clear, Urine pH 6.5, Ur Specific [place] 1.025, Urine Protein 100 H, Urine Glucose (UA) Negative, Urine Ketones Negative, Urine Blood Negative, Urine Nitrate Negative, Urine Bilirubin Negative, Urine Urobilinogen 0.2, Ur Leukocyte Esterase Negative, Urine RBC 0 - 2, Urine WBC 0 - 2, Ur Epithelial Cells 0 - 2, Urine Bacteria Mod, Urine Other Usperm Vital Signs Temp Pulse Resp BP Pulse Ox 05/03/18 16:30 87 137/95 H 05/03/18 07:17 97.3 F L 85 20 137/95 H 05/02/18 15:00 100 H 112/78 05/02/18 07:29 98.4 F 92 H 20 136/94 H 05/01/18 16:34 92 H 122/78 05/01/18 08:00 97.5 F L 102 H 17 112/74 04/30/18 16:00 123 H 103/66 04/30/18 07:06 97.5 F L 94 H 20 108/76 04/29/18 16:30 88 133/88 04/29/18 13:35 98.6 F 88 18 129/85 99 04/29/18 09:50 98.7 F 78 16 137/84 99 DSM 5 Symptoms Update: shortly patient is 33 year old male with reported history of sschizoaffective versus schizophrenia, multiple previous suicidal attempts as well as multiple psychiatric admissions, patient has multiple medical issues including diabetes, patient called 911 saying that he feels suicidal and brought himself to the hospital, 3 days ago on 04/28/2018 patient was trying to kill himself by walking into the traffic, did not tell anyone, did not come to the hospital for evaluation, patient reported being compliant with the medications, main stress is related to the fact that his mother is dying of brain cancer and she is on hospice patient also has blurry vision due to diabetes, patient obviously needs further evaluation and stabilization, indications adjustment. patient attends [facility] but fail outpatient program and right now needs higher level of care. patient was seen today at the treatment team meeting, patient presented with flat affect, as per report patient was compliant with the medications, no complains of blurred vision, no behavioral issues, at the same time patient is self isolating, and generally keeps to himself, patient was participating in groups and was able to express his needs, no behavioral issues, no agitation or aggression. patient tolerates medications well, no side effects observed or reported, aims 0 , no EPS. Patient is due for his injectable form of meds Invega sustenna, sister brought this medication to him over weekend. lexapro was increased, wellbutrin was decreased in dose, pt does not want to d/ c it "it gives me energy". Patient was stressed out about his mother terminal illness, patient wants to be discharged in the near future, patient agreed with tx plan. Diagnostic Results: Schizoaffective disorder by history Medication Change: Yes (Lexapro increased to 20 mg po daily, invega was given today 05/03/18) Medical Record Reviewed: Yes Consults ordered or reviewed: patient was seen by medical team as well as endocrinology team, input appreciated. Mental Status Examination - Cognitive Function Orientation: Person, Place Attention: WNL Concentration: WNL Association: Loose Fund of Knowledge: Poor - Mood Mood: Depressed - Affect Affect: Constricted, Flat - Speech Speech: Appropriate - Formal Thought Process Formal Thought Process: Hallucinations (denied currently) - Suicidal Ideation Suicidal Ideation: No - Homicidal Ideation Homicidal Ideation: No Goal/Treatment Plan - Goal/Treatment Plan Need for Continued Stay: Remain at risks for inpatient hospitalization, Severe depression anxiety, Discharge may exacerbated symptoms, Severe functional impairment Progress Toward Problem(s) and Goals/Treatment Plan: Milieu/structure/supportive therapy Medical consult appreciated, see medical team note for more detailed info endocrinology consultation will be considered Medications were confirmed by patient pharmacy Wellbutrin was decreased to 150 mg daily patient does not want dose to be decreased anymore Thorazine will be decreased from 100 mg to 50 mg at the nighttime with a plan to wean it off, patient complain of blurry vision Lexapro was increased to 20 mg a day for depression with a plan to increase that further Invega Sustenna 234 mg monthly, pt got it today May 03. We'll continue Depakote 1000 mg at the nighttime Depakote level 05/01/2018 was 59 Vistaril was 50 mgas needed for anxiety SW consultation for discharge plan and social issues Family involvement, collateral information appreciated from patient's sister, please see social insurance analyst notes for more detailed information Follow up on labs Will monitor closely Pt was educated about risk/benefits and alternatives of medications, coping strategies (safety plan, suicide prevention), relapse prevention, importance of follow up with psychiatrist and therapist, stay away from drugs/alcohol/smoking Estimated Date of D/C: 05/05/18
[2018-05-03] MEDS: Divalproex 500 mg ER (ONCE DAILY formulation) PO SCH (21:47)
[2018-05-04] MEDS: buPROPion 150 mg/24 Hours XL Tab PO SCH (09:03)
[2018-05-04] MEDS: Insulin Lispro (humaLOG) LOW Coverage SC SCH ×4 (09:04→21:29)
--- NOTE | 2018-05-04 13:06 | PN ---
DATE: 05/04/2018 SUBJECTIVE: The patient is 33 years old, seen and examined. Still continued to have visual symptoms. He states he is having blurry vision. Probably, he is fixated to that idea. PHYSICAL EXAMINATION: VITAL SIGNS: He is afebrile, pulse 74, respirations 20, blood pressure 100/65. LUNGS: Bilateral good airflow. No rhonchi or crackle. HEART: S1 and S2 audible. ABDOMEN: Soft, obese. Nontender. No rebound. No guarding. NEUROLOGICAL: The patient is awake, alert, oriented, communicative, ambulatory. LABORATORY EXAM: His blood sugar 136. Yesterday's blood sugar numbers were 81, 197 in the a.m. and 78 at 4:00 p.m. and at bedtime was 146. Seems to be reasonable with little fluctuation. ASSESSMENT: 1. Noninsulin-dependent diabetes. 2. Anxiety disorder. 3. Bipolar disorder. 4. Hyperlipidemia. PLAN: We will continue him on metformin 500 twice a day. Currently, he is on fenofibrate. We will continue to monitor the blood sugars. Zack Rueda MD
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
--- NOTE | 2018-05-04 15:56 | PN ---
DATE: 05/04/2018 ENDOCRINOLOGY FOLLOWUP NOTE LOCATION: In room 515, Psychiatry. SUBJECTIVE: This is a 33-year-old male with recent suicidal ideations and concomitant major depressive disorder, currently undergoing psychiatric evaluation and management and is also being followed closely for metabolic management. His glycemic levels are fluctuating but much improved at this time and the latest glucose levels overnight have ranged from 78-136 and 197 mg/dL. His hemoglobin A1c was 5.5% which is actually very optimal with degree of metabolic control as noted. So, at this time, we will actually discontinue the glipizide given as 5 mg b.i.d. before meals as ordered. We will continue the modified lower dosing of the metformin given as 500 mg b.i.d. after meals as ordered. We will titrate incrementally as indicated to optimize metabolic control. We will follow. Marleny Paul MD
[2018-05-04] MEDS: Divalproex 500 mg ER (ONCE DAILY formulation) PO SCH (21:13)
[2018-05-05 07:01] VITALS: TEMP 98.3
[2018-05-05] MEDS: Insulin Lispro (humaLOG) LOW Coverage SC SCH ×3 (08:37→16:27)
[2018-05-05] MEDS: buPROPion 150 mg/24 Hours XL Tab PO SCH (08:50)
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
[2018-05-05 16:43] VITALS: BP 139/96; PULSE 100
--- NOTE | 2018-05-05 17:37 | PN ---
DATE: 05/05/2018 ENDO FOLLOWUP NOTE LOCATION: In room 515. SUBJECTIVE: This is a 33-year-old male with recent uncontrolled type 2 diabetes, now with remarkable improvement of his glycemic profile on just metformin therapy as given. His glucose values have ranged from 86-113 and 150 mg/dL. His latest chemistry showed a BUN of 13, sodium 140, potassium 4.1, chloride 107, CO2 of 21, glucose 85 and creatinine 0.6. His serum cortisol level is 12.1. His hemoglobin A1c is 5.5%, which is excellent in terms of his outpatient metabolic control even prior to this admission. So at this time, we will continue the metformin given as 500 mg b.i.d. after meals as ordered. We have discontinued his glipizide because of low normal glycemic fluctuations as noted. We will obtain serial chemistries and supplement accordingly as needed. We will follow. Marleny Paul MD
--- NOTE | 2018-05-06 00:01 | PN ---
DATE: 05/05/2018 SUBJECTIVE: The patient is 33 years old, seen and examined. Getting ready to be discharged. The states his blood sugar has been running low, I advised him to take metformin 500 twice a day. He states he feels better; otherwise, emotionally, he does not feel as depressed. PHYSICAL EXAMINATION: VITAL SIGNS: He is afebrile, pulse 71, respirations 20, blood pressure 139/96. LUNGS: Bilateral good airflow. No rhonchi or crackle. HEART: S1 and S2 audible. ABDOMEN: Soft. Nontender. Obese. No hepatosplenomegaly. NEUROLOGICAL: The patient is awake, alert, oriented, communicative. ASSESSMENT: 1. History of depression. 2. Bipolar disorder with schizophrenia. 3. Hyperlipidemia. 4. Morbid obesity. 5. Visual disturbance. PLAN: The patient will be discharged today and will follow up with his PMD, his psychiatrist and . Zack Rueda MD
== END 2018-05-05 19:12 | disposition home or self-care (01) | DRG 885 ==
LOC: ED 09:31 → ERH 12:10 → PSYC 13:48
PROVIDERS: ADMIT Psychiatry & Neurology Psychiatry; ATTEND Psychiatry & Neurology Psychiatry
DX: F25.9 Schizoaffective disorder, unspecified (principal); F32.3 Major depressive disorder, single episode, severe with psychotic features; R45.851 Suicidal ideations; F31.9 Bipolar disorder, unspecified; E11.319 Type 2 diabetes mellitus with unspecified diabetic retinopathy without macular edema; E66.01 Morbid (severe) obesity due to excess calories; E78.5 Hyperlipidemia, unspecified; F20.0 Paranoid schizophrenia; H54.7 Unspecified visual loss; I10 Essential (primary) hypertension; Z79.84 Long term (current) use of oral hypoglycemic drugs; Z79.899 Other long term (current) drug therapy; Z91.5 Personal history of self-harm